=== PATIENT | male | born 1985 | race Caucasian/White ===

== ENCOUNTER 2021-07-19 12:25 | Emergency (ER) | payer OTHER, MEDICAID, SELFPAY ==
[2021-07-19 12:35] VITALS: BP 153/105; PULSE 84; RESP 16; TEMP 36.2; O2SAT 99; BMI 22.9
--- NOTE | 2021-07-19 13:02 | ED.ALCOHOL ---
HPI - Alcohol <Marzena Simon DO - Last Filed: 07/19/21 19:20> General Chief Complaint: Toxicology Problem Stated Complaint: anxiety, alcohol Time Seen by Provider: 07/19/21 12:37 Source: patient Mode of arrival: Ambulatory Limitations: no limitations Related Data Previous Rx's Medication Instructions Recorded chlordiazepoxide HCl 25 mg capsule See Rx Instructions .ROUTE 07/19/21 .COMPLEX #30 cap lorazepam 0.5 mg tablet (Ativan) 0.5 mg PO BEDTIME PRN #7 tab 07/19/21 triamcinolone acetonide 0.1 % 1 applic TOPICAL BID #454 g 07/19/21 topical cream Allergies Allergy/AdvReac Type Severity Reaction Status Date / Time No Known Drug Allergies Allergy Verified 07/19/21 12:37 <Charlee Marquez PA-C - Last Filed: 07/19/21 14:14> History of Present Illness HPI narrative: 35-year-old male with a history of alcohol abuse presents to the ED requesting medications that will enable him to quit drinking alcohol. Patient endorses he is a heavy drinker drinking about 18 beers every evening. Patient denies drinking throughout the day. Patient denies experiencing any symptoms of alcohol withdrawal including tremors, sweating, agitation. Patient endorses a history of anxiety at baseline. Patient states that he got custody of his daughter a few months prior, wishes to detox from alcohol to feel better and be more functional. Patient says that he has tried Librium before for the same purpose and that it worked well for him. Patient endorses having been alcohol free for months to years at a stretch, relapsed due to precipitating events. Patient denies fever, chills, chest pain, shortness of breath. Patient denies injection drug use. Review of Systems <Marzena Simon DO - Last Filed: 07/19/21 19:20> Review of Systems ROS Unobtainable: All systems reviewed & are unremarkable except as noted in HPI and below <Charlee Marquez PA-C - Last Filed: 07/19/21 14:14> Constitutional Constitutional: Denies chills, Denies fatigue, Denies fever(s), Denies frequent falls, Denies lethargy and Denies weakness Eyes Eyes: Denies change in vision, Denies eye discharge, Denies irritation and Denies loss of vision ENT Ears, Nose, Mouth, and Throat: Denies change in voice, Denies dizziness, Denies neck pain, Denies sore throat and Denies throat swelling Cardiovascular Cardiovascular: Denies chest pain, Denies irregular heart rhythm, Denies lightheadedness, Denies palpitations, Denies dyspnea, Denies dyspnea on exertion and Denies orthopnea Respiratory Respiratory: Denies cough, Denies dyspnea, Denies dyspnea on exertion and Denies wheezing Gastrointestinal Gastrointestinal: Denies abdominal pain, Denies change in bowel habits, Denies diarrhea, Denies nausea and Denies vomiting Genitourinary Genitourinary: Denies hematuria, Denies flank pain, Denies urinary incontinence and Denies urinary urgency Musculoskeletal Musculoskeletal: Denies back pain, Denies muscle weakness, Denies neck pain, Denies numbness and Denies tingling Integumentary/Breasts Skin/Breast: Denies pruritus, Denies erythema, Denies rash and Denies wounds Neurologic Neurologic: Denies behavioral changes, Denies confusion, Denies dizziness, Denies frequent falls, Denies loss of vision, Denies numbness, Denies tingling and Denies weakness Psychiatric Psychiatric: Denies anxiety, Denies behavioral changes, Denies confusion, Denies depression, Denies homicidal ideation and Denies suicidal ideation Endocrine Endocrine: Denies fatigue, Denies flushing and Denies palpitations Hematologic/Lymphatic Hematologic/Lymphatic: Denies easy bruising Allergic/Immunologic Allergic/Immunologic: Denies urticaria, Denies throat swelling and Denies wheezing Patient History <Marzena Simon DO - Last Filed: 07/19/21 19:20> Social History Smoking Status: Current every day smoker Smoking Status: Current every day smoker tobacco type: cigarettes alcohol intake frequency: 3 or more drinks per day Alcohol type: beer Substance Use Type: does not use Exam <Marzena Simon DO - Last Filed: 07/19/21 19:20> Initial Vital Signs Initial Vital Signs: Vital Signs Temperature 97.1 F L 07/19/21 12:35 Pulse Rate 84 07/19/21 12:35 Respiratory Rate 16 07/19/21 12:35 Blood Pressure 153/105 H 07/19/21 12:35 Pulse Oximetry 99 07/19/21 12:35 <CURT Hargrove Last Filed: 07/19/21 14:14> Narrative Exam Narrative: Const General:?cooperative, healthy appearing and comfortable [facility] Head:?normal to inspection Ears:?hearing grossly normal bilaterally Nose:?external nose normal Face and sinus:?normal facial exam and sinuses nontender Mouth:?oral mucosae normal Throat:?posterior oropharynx normal Eyes General:?appearance normal, both eyes and all related structures Neck Neck:?normal visual inspection and no lymphadenopathy noted Resp Effort & Inspection:?normal respiratory effort Auscultation:?clear to auscultation bilaterally Cardio Rate:?regular rate Rhythm:?regular rhythm Neuro General:?patient alert, patient awake and patient oriented x3; CIWA score 0 Initial Vital Signs Initial Vital Signs: Vital Signs Temperature 97.1 F L 07/19/21 12:35 Pulse Rate 84 07/19/21 12:35 Respiratory Rate 16 07/19/21 12:35 Blood Pressure 153/105 H 07/19/21 12:35 Pulse Oximetry 99 07/19/21 12:35 Course <Marzena Simon DO - Last Filed: 07/19/21 19:20> Vital Signs Vital signs: Vital Signs - 8 hr 07/19/21 12:35 07/19/21 14:03 Temperature 97.1 F L Pulse Rate 84 68 Respiratory Rate 16 18 Blood Pressure 153/105 H 129/92 H Pulse Oximetry 99 98 <CURT Hargrove Last Filed: 07/19/21 14:14> Vital Signs Vital signs: Vital Signs - 8 hr 07/19/21 12:35 07/19/21 14:03 Temperature 97.1 F L Pulse Rate 84 68 Respiratory Rate 16 18 Blood Pressure 153/105 H 129/92 H Pulse Oximetry 99 98 <CURT Hargrove Last Filed: 07/19/21 14:14> [facility] Narrative Medical decision making narrative: 35-year-old male with a history of alcohol abuse presents to the ED requesting medications that will enable him to quit drinking alcohol. Concern for alcohol withdrawal, alcohol abuse. Will prescribe a Librium taper. Patient is requesting Ativan to keep as a backup for baseline anxiety. Will give him a few pills to keep on hand. Discussed with patient that we do not prescribe long-term opioids or benzodiazepines from the ED, and that he will need to see his PCP for the same. Patient requesting a refill on his triamcinolone cream for a rash. Advised patient to not consume alcohol while taking the Librium or Ativan. Advised patient to not take Ativan while taking Librium. Consult patient on signs and symptoms of alcohol withdrawal. ED return precautions discussed. Patient verbalized understanding. Discharge Plan Departure Patient Disposition: Home Clinical Impression: Desire for detoxification Instructions: Delirium Tremens, Drug and Alcohol Withdrawal, Naloxone for Opiate Overdose - [facility]ARRY Activity Restrictions/Additional Instructions: You were seen in the ED today for a desire to detox from alcohol. You have been prescribed a Librium taper. Please take the medication per the directions on the prescription. Please watch for signs of alcohol withdrawal which include tremors, shaking, sweating, anxiety, agitation. If you experience any signs of alcohol withdrawal, please return to the ED immediately since this can result in coma and . Please do not take the Librium with Ativan or other benzodiazepines. Please do not consume alcohol while taking the Librium. Prescriptions: New chlordiazepoxide HCl 25 mg capsule See Rx Instructions .ROUTE .COMPLEX Qty: 30 0RF Rx Instructions: Day1:Take 50 mg every 6 hours; Day2:Take 25 mg every 6 hours;Day3:Take 25 mg every 6 hours;Day4:Take 25 mg every 12 hours;Day5:Take 25 mg at night triamcinolone acetonide 0.1 % cream 1 applic topical BID Qty: 454 0RF lorazepam [Ativan] 0.5 mg tablet 0.5 mg PO BEDTIME PRN (Reason: anxiety) Qty: 7 0RF Stand Alone Forms: Naloxone Standing Order HARRY
--- NOTE | 2021-07-19 14:01 | PC.NURSE ---
Determined by provider Charlee Marquez, pt does not take opioids and is not at risk for opiate overdose.
[2021-07-19 14:03] VITALS: BP 129/92; PULSE 68; RESP 18; O2SAT 98
== END 2021-07-19 14:09 | disposition home or self-care (01) ==
PROVIDERS: Emergency Provider Student in an Organized Health Care Education/Training Program
DX: F10.10 Alcohol abuse, uncomplicated (principal); F17.210 Nicotine dependence, cigarettes, uncomplicated
CPT/HCPCS: 99281